=== PATIENT | male | born 1965 | race Caucasian/White ===

== ENCOUNTER 2022-08-26 10:49 | Emergency (ER) | payer OTHER, SELFPAY ==
[2022-08-26 10:51] VITALS: BP 113/72; PULSE 76; RESP 18; TEMP 36.6; O2SAT 97; BMI 21.8
--- NOTE | 2022-08-26 11:17 | EDS_ITS ---
HPI History of Present Illness Chief Complaint: General Illness Informant: patient Onset/Context/Timing Onset: Days (4) Context: Gradual Onset Timing: Continuous Quality: Sharp Location: Head Worsened by: Nothing Relieved by: Nothing Narrative Narrative: Patient presents with possible COVID-19 that has been getting progressively worse over the last 4 days. Patient states his parents recently tested positive for COVID-19. Patient states his symptoms started 3 days ago. Patient states that he took 18 mg of ivermectin that day. Patient states his symptoms have gradually gotten worse. Patient admits to a sore throat and rhinorrhea. Patient admits to a cough with some brown sputum. Patient admits to some nausea and vomiting. Patient admits to a fever of 101.7. Patient admits to some general myalgias. Patient also admits to a headache which he describes as sharp. Patient states nothing makes it better nothing makes it worse. [facility] Medical History (Updated 08/26/22 @ 12:[address] Janusz De Santiago DO) Diabetes Home Medications nirmatrelvir 300 mg (150 mg x2)-ritonavir 100 mg tablet,dose pack(EUA) (Paxlovid) See Rx Instructions PO .COMPLEX #30 tabs 08/26/22 [Rx Last Taken Unknown] Allergy/AdvReac Type Severity Reaction Status Date / Time No Known Allergies Allergy Verified 08/26/22 10:53 Surgical History Status post surgical removal of malignant neoplasm of skin Social History Smoking Status: Never smoker ROS ROS ED Constitutional Constitutional ED: Reports chills and fever(s) Eyes Eyes: Denies blurry vision or change in vision ENT ENT ED: Reports rhinorrhea and sore throat Cardiovascular Cardiovascular: Reports chest pain; Denies palpitations Respiratory/Chest Respiratory/Chest: Reports cough; Denies dyspnea Gastrointestinal Gastrointestinal: Reports nausea and vomiting Genitourinary Genitourinary ED: Denies dysuria or hematuria Musculoskeletal Musculoskeletal: Reports back pain and myalgias; Denies neck pain Integumentary Denies abscess or rash Neurologic Neurologic: Reports headache(s); Denies weakness Allergic/Immunologic Allergic/Immunologic ED: Denies mouth swelling or urticaria EXAM Physical Exam Const Vital Signs: 08/26/22 10:51 08/26/22 11:34 Temperature 98 F Temperature Source Temporal Pulse Rate 76 Respiratory Rate 18 Respiratory Effort Normal Non-Labored Blood Pressure 113/72 Blood Pressure Mean 85 Pulse Ox 97 Oxygen Delivery Method Room Air Positive well nourished and well developed General Appearance ED: well developed and NAD HEENT Reports moist mucous membranes Eyes PERRL and EOMs intact bilaterally Neck supple and no JVD Resp normal respiratory effort and clear to auscultation bilaterally Cardio regular rate, regular rhythm and no murmurs GI normal to inspection, nondistended, normoactive bowel sounds and non-tender Palpation: soft Extremity normal to inspection General Extremety ED: Negative for edema or tenderness General Extremity: Negative for edema Neuro oriented x3, CN's II-XII intact bilaterally and no sensory deficits noted Sensorium / Orientation: alert Motor Exam: strength 5/5 throughout Psych mental status grossly normal Skin no rashes or lesions noted MDM MDM MDM Narrative Medical decision making narrative: Patient was given IV fluids. COVID-19 rapid antigen was obtained and was positive. Influenza A and influenza B swabs were obtained and were negative. Portable 1 view chest x-ray was obtained. On my interpretation, lung harvey are clear. There is normal cardiac silhouette. Bony thorax is normal. There is no acute process noted. Radiologist also interpreted the x-ray and agrees. Patient was advised of his findings. Patient was given a prescription for Paxlovid. Patient was instructed to follow-up with his primary care physician in 5 to 7 days. Patient understood and was agreeable with the plan. All questions were answered. Radiography Chest X-Ray - ED: 1 View, Read by ED Physician, Read by Radiologist and No Acute Disease Diagnostic Testing: Clinical Impression(s) from Imaging Studies Chest X-Ray 08/26/22 11:35 IMPRESSION: Normal x-ray examination of the chest. Electronically Signed: Tod Jones MD at 12:00 EDT , Discharge Plan Triage Chief Complaint: General Illness ED Provider: Janusz De Santiago Dx/Rx/DC Orders Clinical Impression: COVID-19, Cough Instructions: Coronavirus Disease 2019 (COVID-19): Caring for Yourself or Others Prescriptions: New Paxlovid (EUA) 300 mg (150 mg x 2)-100 mg tablets,dose pack See Rx Instructions .ROUTE .COMPLEX Qty: 30 0RF Rx Instructions: take TWO 150 mg tablets of nirmatrelvir with ONE 100 mg tablet of ritonavir twice daily for 5 days Primary Care Provider: Care Physician,No Primary Referrals: Irene Patterson MD [Med Staff - Melter Operator] - 5-7 Days Care Physician,No Primary [Primary Care Provider] - Disposition Disposition: Home, Self Care
--- NOTE | 2022-08-26 11:35 | RAD_ITS ---
STUDY: X-RAY CHEST REASON FOR EXAM: Male, 56 years old. Cough TECHNIQUE: Single AP portable view of the chest. COMPARISON: Comparison is made with prior study 09/08/2015. FINDINGS: The lungs are clear and expanded. There is no demonstrated pleural abnormality. Normal size heart. Normal mediastinum and pasquale. Normal visualized pulmonary arteries. Normal visualized aortic arch and descending thoracic aorta. Normal visualized thoracic spine. Normal visualized ribs, clavicles, and shoulders. There is no demonstrated abnormality of the visualized soft tissue structures of the upper abdomen. RAD/Chest 1 View (Portable) IMPRESSION: Normal x-ray examination of the chest. Electronically Signed: Tod Jones MD at 12:00 EDT ,
== END 2022-08-26 13:03 | disposition home or self-care (01) ==
PROVIDERS: Emergency Provider Emergency Medicine; Visit Provider Emergency Medicine
DX: U07.1 COVID-19 (principal)
CPT/HCPCS: 71045; 87428; 99284; A4216

== ENCOUNTER 2023-07-30 16:28 | Emergency (ER) | payer OTHER, SELFPAY ==
[2023-07-30 16:30] VITALS: BP 138/90; PULSE 86; RESP 18; TEMP 36.4; O2SAT 97; BMI 23.5
--- NOTE | 2023-07-30 16:35 | NURSING ---
NO OLD EKGS
--- NOTE | 2023-07-30 16:44 | EDS_ITS ---
<Statement entered by Valentino Mcdermott MD - 07/31/23 15:06> I have personally performed a face to face assessment of the patient and have reviewed the GALE Note. Dr. Mcdermott: I have personally performed a face to face assessment of the patient and have reviewed the GALE Note. I performed a substantive portion of the visit including all aspects of the following. My montilla findings include: History is midsternal chest tightness and shortness of breath while chopping wood. Diagnosis of COPD. Exam is afebrile. Vital signs noted. Regular rate and rhythm. Lungs clear to auscultation bilaterally. Abdomen soft and nontender. Normal active bowel sounds. No respiratory distress. Medical Decision Making: In the differential is ACS versus COPD exacerbation versus dyspnea with exertion. Check EKG. Check chest x-ray. Checks labs. Check delta troponin. Discharge. I do not feel he requires observation at this time. Other additions or changes: [None] HPI History of Present Illness Chief Complaint: Chest Pain Narrative Narrative: 57-year-old male was chopping wood for about 45 minutes this morning around 9 AM and developed midsternal chest tightness, shortness of breath and fatigue to the point he had to lay down on the ground and rest. He started working again after resting for a little while but developed midsternal chest pain again within a few minutes. He initially went home but then was urged to come to the ER for evaluation. 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 He states he was recently diagnosed with emphysema/COPD at the [facility]. He has never been a smoker and they attributed it to environmental exposures in [place]. He uses an inhaler. He has had no recent increased shortness of breath or cough at home. [facility] Medical History (Updated 07/30/23 @ 20:39 by CHRIS Harrell) COPD (chronic obstructive pulmonary disease) Diabetes Home Medications nirmatrelvir 300 mg (150 mg x2)-ritonavir 100 mg tablet,dose pack (Paxlovid) See Rx Instructions PO .COMPLEX #30 tabs 08/26/22 [Rx Last Taken Unknown] Allergy/AdvReac Type Severity Reaction Status Date / Time No Known Allergies Allergy Verified 07/30/23 16:30 Surgical History Status post surgical removal of malignant neoplasm of skin Social History Smoking Status: Never smoker ROS ROS ED ROS Narrative Constitutional: Negative for fever, chills, malaise. CVS: Positive for chest pain. Negative for syncope. Respiratory: Negative for shortness of breath. GI: Negative for abdominal pain, nausea, vomiting. EXAM Physical Exam Narrative Exam Narrative: CONST: Patient sitting in no acute distress. EYES: Normal inspection. NECK: Normal inspection. RESP: No respiratory distress, CTAB. CVS: Regular rate and rhythm, no murmur, no gallop. ABD: Soft and nontender, no guarding or rebound, nondistended, no hepatosplenomegaly. SKIN: Color normal, no rash, warm, dry, intact. EXTREMITIES: Normal appearance, no pedal edema. NEURO: Oriented x4. PSYCH: Normal affect. Const Vital Signs: 07/30/23 16:30 07/30/23 17:18 07/30/23 18:22 Temperature 97.6 F L Temperature Source Temporal Pulse Rate 86 70 Respiratory Rate 18 14 Blood Pressure 138/90 H 145/93 H Blood Pressure Mean 106 110 Pulse Ox 97 95 Oxygen Delivery Method Room Air Room Air Room Air 07/30/23 19:00 07/30/23 20:00 Temperature Temperature Source Pulse Rate 69 69 Respiratory Rate 14 16 Blood Pressure 145/90 H 127/73 H Blood Pressure Mean 108 91 Pulse Ox 94 96 Oxygen Delivery Method Room Air Room Air MDM MDM MDM Narrative Medical decision making narrative: History gathered from: Patient and friend Patient had an episode of exertional chest pain and shortness of breath. He appears well and nontoxic. Vital signs within normal limits. He has a normal cardiopulmonary exam. Clinically no signs of fluid overload or DVT. EKG is sinus rhythm with no ischemic changes and serial cardiac enzymes are 5 and 6 ruling out ACS. D-dimer negative. CBC and BMP unremarkable. CXR shows no acute process. He is remained asymptomatic for the entirety of stay here and I feel he can be discharged home to [facility]. He was instructed that if symptoms return or worsen he should be immediately reevaluated and he was discharged in stable condition. Differential: ACS, PE, angina, COPD among other Lab Data Attestation: I reviewed the patient's lab results. Labs: Laboratory Results - last 24 hr 07/30/23 07/30/23 17:15 19:54 WBC 8.0 RBC 4.48 L Hgb 14.9 Hct 42.1 MCV 94.0 MCH 33.3 H MCHC 35.4 RDW Std Deviation 38.4 RDW Coeff of Declan 11.2 L Plt Count 261 MPV 8.9 Immature Gran % (Auto) 0.200 Neut % (Auto) 55.5 Lymph % (Auto) 29.3 Richardson % (Auto) 10.4 H Eos % (Auto) 4.0 Baso % (Auto) 0.6 Absolute Neuts (auto) 4.4 Absolute Lymphs (auto) 2.35 Nucleated RBC % 0 D-Dimer Quant (PE/DVT) < 0.27 L Sodium 139 Potassium 3.8 Chloride 106 Carbon Dioxide 29.0 Anion Gap 4 L BUN 20 H Creatinine 0.97 Estim Creat Clear Calc 98.87 Est GFR (MDRD) Af Amer 103 Est GFR (MDRD) Non-Af 85 BUN/Creatinine Ratio 20.7 H Glucose 89 Calcium 9.2 Troponin I High Sens 5 6 Radiography Diagnostic Testing: Clinical Impression(s) from Imaging Studies Chest X-Ray 07/30/23 17:20 IMPRESSION: No radiographic evidence of acute cardiopulmonary disease. Electronically Signed: Khai Jones MD at 17:37 EDT Reading Location ID and State: [facility] / [place] , Service support , ED attending interpretation of 2-view chest x-ray shows normal heart size, no acute infiltrate, edema, or effusion. EKG Initial EKG: Attestation: I personally reviewed and interpreted this EKG as follows: Interpretation: Sinus Rhythm and No Acute Injury Pattern Comments: ED attending interpretation is normal sinus rhythm at 80 bpm Normal intervals, no ectopy No STEMI criteria Discharge Plan Triage Chief Complaint: Chest Pain ED Midlevel Provider: Marisol Nunez ED Provider: Valentino Mcdermott Dx/Rx/DC Orders Clinical Impression: Chest pain Instructions: Chest Pain [facility] Prescriptions: No Action Paxlovid 300 mg (150 mg x 2)-100 mg tablets,dose pack See Rx Instructions .ROUTE .COMPLEX Qty: 30 0RF Rx Instructions: take TWO 150 mg tablets of nirmatrelvir with ONE 100 mg tablet of ritonavir twice daily for 5 days Primary Care Provider: Care Physician,No Primary Referrals: Care Physician,No Primary [Primary Care Provider] - Activity Restrictions/Additional Instructions: Today your blood work and imaging were normal with no signs of heart attack or blood clot. However I cannot rule out underlying heart disease and recommend you see your PCP this week for further evaluation. If you have new or worsening symptoms come back to the ER. Disposition Disposition: Home, Self Care
--- NOTE | 2023-07-30 16:44 | EKG12_ITS ---
Test Reason : CP Blood Pressure : / mmHG Vent. Rate : 080 BPM Atrial Rate : 080 BPM P-R Int : 186 ms QRS Dur : 108 ms QT Int : 362 ms P-R-T Axes : 040 029 043 degrees QTc Int : 417 ms Normal sinus rhythm Normal ECG No previous ECGs available Confirmed by CELIA AMADOR, SUZIE ([id number]), fashion editor AMBROSE NARANJO ([id number]) on 09/13/2023 1:59:53 PM Referred By: RON/CRESENCIO Confirmed By:SUZIE YANG MD
[2023-07-30] MEDS: Aspirin 81 MG TAB.CHEW 324 MG PO (16:58)
--- NOTE | 2023-07-30 17:20 | RAD_ITS ---
EXAM: XR CHEST, 1 VIEW CLINICAL INDICATION: chest pain TECHNIQUE: Frontal view of the chest. COMPARISON: 9.30.22 FINDINGS: LUNGS AND PLEURAL SPACES: Unremarkable. No consolidation or edema. No pneumothorax. No effusion. HEART: Unremarkable. Cardiac silhouette not enlarged. MEDIASTINUM: Central airways and mediastinal contour are unremarkable. BONES/JOINTS: Unremarkable. SOFT TISSUES: Unremarkable. RAD/Chest 1 View (Portable) IMPRESSION: No radiographic evidence of acute cardiopulmonary disease. Electronically Signed: Khai Jones MD at 17:37 EDT ,
[2023-07-30 17:25] LABS: Absolute Lymphocyte Count 2.35 X10^3/uL (0.83-4.51); Absolute Neutrophil Count 4.4 X10^3/uL (2.0-7.7); Basophil# 0.05 X10^3/uL; Basophil% 0.6 % (0-1); Eosinophil# 0.32 X10^3/uL; Hematocrit 42.1 % (40-54); Hemoglobin 14.9 g/dL (13.0-16.5); Lymphocyte # 2.35 X10^3/ul (0.83-4.51); Lymphocyte % 29.3 % (19-41); Mean Corp Hgb Conc 35.4 g/dL (32-36); Mean Corpuscular Hgb 33.3 pg (27.0-32.0); Mean Platelet Vol. 8.9 fl (6.2-12.0); Monocyte# 0.83 X10^3/uL; Monocyte% 10.4 % (0-10); NRBC Flagged by Analyzer 0 % (0-5); Neutrophil # 4.44 X10^3/uL (2.7-7.7); Neutrophil % 55.5 % (47-70); Platelet Count 261 K/mm3 (150-450); RBC Distribution Width CV 11.2 % (11.6-14.6); RBC Distribution Width SD 38.4 fl (35.1-43.9); Red Blood Count 4.48 M/mm3 (4.6-6.2)
[2023-07-30 17:40] LABS: D-Dimer Quantitative (DVT/PE) < 0.27 FEU/ug/m (0.27-0.49)
[2023-07-30 17:47] LABS: Anion Gap 4 (5-15); BUN 20 mg/dL (7-18); BUN/Creat Ratio 20.7 RATIO (10-20); Calcium,Total 9.2 mg/dL (8.5-10.1); Chloride 106 mmol/L (98-107); Creatinine, Serum 0.97 mg/dL (0.70-1.30); EST Glomerular Filtration Rate 85 mL/min (>60); Est Glom Filt Rate - Afr Amer 103 mL/min (>60); Estimated Creatinine Clearance 98.87 ml/min; Glucose 89 mg/dL (74-106); Potassium 3.8 mmol/L (3.5-5.1); Sodium Level 139 mmol/L (136-145); Troponin-I HS (w/2H Reflex) 5 pg/mL (3.0-78.0)
[2023-07-30 18:22] VITALS: BP 145/93; PULSE 70; RESP 14; O2SAT 95
[2023-07-30 19:00] VITALS: BP 145/90; PULSE 69; RESP 14; O2SAT 94
[2023-07-30 19:23] LABS: Reflex Troponin-HS? (from REC) Y
[2023-07-30 20:00] VITALS: BP 127/73; PULSE 69; RESP 16; O2SAT 96
[2023-07-30 20:33] LABS: Troponin-I HS 6 pg/mL (3.0-78.0)
[2023-07-30 20:56] VITALS: BP 126/81; PULSE 74; RESP 16; O2SAT 98
== END 2023-07-30 20:56 | disposition home or self-care (01) ==
PROVIDERS: Physician Assistant; Emergency Provider Emergency Medicine; Visit Provider Emergency Medicine
DX: R07.9 Chest pain, unspecified (principal)
CPT/HCPCS: 71045; 80048; 84484; 85025; 85379; 93005; 99285; A4216

== ENCOUNTER 2024-01-08 17:10 | Emergency (ER) | payer OTHER, SELFPAY ==
[2024-01-08] VITALS (8 sets, daily range): BP systolic 124–153; BP diastolic 76–98; PULSE 65–78; RESP 15–22; TEMP 36.1; O2SAT 97–100; BMI 24.2
--- NOTE | 2024-01-08 17:38 | EKG12_ITS ---
Test Reason : SOB Blood Pressure : / mmHG Vent. Rate : 068 BPM Atrial Rate : 068 BPM P-R Int : 190 ms QRS Dur : 102 ms QT Int : 390 ms P-R-T Axes : 036 038 054 degrees QTc Int : 414 ms Normal sinus rhythm Normal ECG Confirmed by Liam Saba ([id number]), news assignment editor TIANA IGLESIAS ([id number]) on 01/09/2024 9:29:13 AM Referred By: Confirmed By:Liam Saba
[2024-01-08] MEDS: Ipratropium/Albuterol Sulfate 3 ML AMPUL.NEB INHALATION (17:46)
[2024-01-08] MEDS: Albuterol 2.5 MG/3 ML VIAL.NEB. INHALATION (18:08)
[2024-01-08 18:15] LABS: Absolute Lymphocyte Count 3.09 X10^3/uL (0.83-4.51); Absolute Neutrophil Count 3.5 X10^3/uL (2.0-7.7); Basophil# 0.07 X10^3/uL; Basophil% 0.9 % (0-1); Eosinophil# 0.43 X10^3/uL; Eosinophils% 5.5 % (0-5); Hematocrit 43.7 % (40-54); Hemoglobin 15.3 g/dL (13.0-16.5); Lymphocyte # 3.09 X10^3/ul (0.83-4.51); Lymphocyte % 39.3 % (19-41); Mean Corpuscular Hgb 31.7 pg (27.0-32.0); Mean Corpuscular Volume 90.7 fL (80-94); Mean Platelet Vol. 9.1 fl (6.2-12.0); Monocyte# 0.75 X10^3/uL; Monocyte% 9.5 % (0-10); NRBC Flagged by Analyzer 0 % (0-5); Neutrophil # 3.51 X10^3/uL (2.7-7.7); Neutrophil % 44.7 % (47-70); Platelet Count 321 K/mm3 (150-450); RBC Distribution Width CV 11.4 % (11.6-14.6); RBC Distribution Width SD 38.1 fl (35.1-43.9); Red Blood Count 4.82 M/mm3 (4.6-6.2); White Blood Count 7.9 K/mm3 (4.4-11.0)
--- NOTE | 2024-01-08 18:24 | ED.VIS.DYS ---
HPI History of Present Illness Chief Complaint: Shortness of Breath Informant: patient Narrative Narrative: Patient presents with dyspnea and wheezing. He states he is diagnosed with COPD. It sounds like he is on inhaled steroid like Atrovent but he has no rescue inhaler. He states since Monday has been having more episodes where his breathing gets really tight. He is not really pain but tight. No fevers or chills. No nausea vomiting or muscle aches. He states it is just hard sometimes to get a full deep breath. He also thinks anxiety is playing a part in this as he gets very anxious. No history of heart disease. He had a stress test it up in the [facility] in [place] in October that was totally normal. [facility] Medical History COPD (chronic obstructive pulmonary disease) Diabetes Emphysema lung Home Medications nirmatrelvir 300 mg (150 mg x2)-ritonavir 100 mg tablet,dose pack (Paxlovid) See Rx Instructions PO .COMPLEX #30 tabs 08/26/22 [Rx Last Taken Unknown] prednisone 20 mg tablet 60 mg (3 x 20 mg) PO DAILY #15 TABLETS 01/08/24 [Rx Last Taken Unknown] Allergy/AdvReac Type Severity Reaction Status Date / Time No Known Allergies Allergy Verified 07/30/23 16:30 Surgical History Status post surgical removal of malignant neoplasm of skin Social History Smoking Status: Never smoker ROS ROS ED ROS Narrative A complete review of systems was performed and is negative except as documented in the history of present illness. Some specific details below. Constitutional: No recent fevers or chills. No malaise EYE: No discharge ENT: No difficulty swallowing. No swelling. No pain. No reflux symptoms. No GERD. No change in voice. CV: He has a tight sense but no pain. No palpitations. Respiratory: See history of present illness. No hemoptysis. No sputum. GI: No abdominal pain. No nausea vomiting diarrhea. No blood in stool. : No frequency dysuria or hematuria. Musculoskeletal: No recent trauma. No pains. No swelling. No travel surgery immobilization personal or family history of DVT or PE. Skin: No rash. Nondiaphoretic. Neuro: No weakness or numbness. Endocrine: No polyuria or polydipsia. EXAM Physical Exam Narrative Exam Narrative: CONSTITUTIONAL: Patient is nontoxic in appearance. The patient looks comfortable. Work of breathing looks increased. HEENT: No notable trauma. Mucous membranes moist. No sinus tenderness. No indication of pain with swallowing. No swelling or mass EYES: No conjunctival injection. No pallor. NECK:No JVD. No stridor. CARDIOVASCULAR: Regular rate. Regular rhythm. No notable murmur. No JVD. RESPIRATORY: Patient has increased work of breathing. But mostly he takes a big breath in. When he gets a big breath he looks relaxed and he even states it is a very calming influence. He is moving air but slightly decreased. He has some expiratory wheeze. More with the forced expiration. GASTROINTESTINAL: Not distended. Bowel sounds are normal. No tenderness. GENITOURINARY: No tenderness over the bladder. No CVA tenderness. MUSCULOSKELETAL: Atraumatic. No peripheral edema. No cord. No tenderness along the deep venous system. No asymmetry. No distended veins. NEUROLOGICAL: Patient is alert and appropriate. No focal deficit noted. SKIN: No noted rashes. No diaphoresis. PSYCHIATRIC: Patient is a bit anxious. Const Vital Signs: 01/08/24 17:11 01/08/24 17:20 01/08/24 17:46 Temperature 97.0 F L Temperature Source Temporal Pulse Rate 77 77 Respiratory Rate 22 H 20 H Respiratory Effort Normal Non-Labored Respiratory Depth Normal Respiratory Pattern Normal Normal Blood Pressure 153/98 H Blood Pressure Mean 116 Pulse Ox 100 Oxygen Delivery Method Room Air 01/08/24 17:46 01/08/24 18:06 01/08/24 18:09 Temperature Temperature Source Pulse Rate 65 Respiratory Rate 18 Respiratory Effort Respiratory Depth Respiratory Pattern Normal Blood Pressure Blood Pressure Mean Pulse Ox 99 99 Oxygen Delivery Method Room Air Room Air 01/08/24 18:25 01/08/24 19:09 Temperature Temperature Source Pulse Rate 67 68 Respiratory Rate 15 15 Respiratory Effort Respiratory Depth Respiratory Pattern Blood Pressure 127/88 H 124/77 H Blood Pressure Mean 101 92 Pulse Ox 99 97 Oxygen Delivery Method Room Air Room Air MDM MDM MDM Narrative Medical decision making narrative: Patient is given some breathing treatments here. He is also very anxious. Nurse talked to him and he would like something for anxiety which I think is reasonable. We will get him a dose of Ativan. We are awaiting further evaluation and results. My independent interpretation of his single view AP chest x-ray shows no acute process. Final reading is pending. Patient's CBC is normal. Patient's electrolytes show no marked abnormalities. Patient's troponin is negative at 7 despite several days of symptoms. I do not think this requires a repeat or delta troponin. Final reading of his x-ray shows no acute process. I rechecked the patient. He is calm relaxed doing markedly better. We will get him on a short course of steroids. I will write for albuterol here so he can be shown how to use it. We discussed the timing and expectation. We explained that steroids take about a day to start working. He will follow-up with the [facility]. Lab Data Attestation: I reviewed the patient's lab results. Labs: Laboratory Results - last 24 hr 01/08/24 17:50 WBC 7.9 RBC 4.82 Hgb 15.3 Hct 43.7 MCV 90.7 MCH 31.7 MCHC 35.0 RDW Std Deviation 38.1 RDW Coeff of Declan 11.4 L Plt Count 321 MPV 9.1 Immature Gran % (Auto) 0.100 Neut % (Auto) 44.7 L Lymph % (Auto) 39.3 [place] % (Auto) 9.5 Eos % (Auto) 5.5 H Baso % (Auto) 0.9 Absolute Neuts (auto) 3.5 Absolute Lymphs (auto) 3.09 Nucleated RBC % 0 Sodium 143 Potassium 3.6 Chloride 110 H Carbon Dioxide 25.0 Anion Gap 8 BUN 13 Creatinine 0.98 Estim Creat Clear Calc 96.69 Est GFR (MDRD) Af Amer 102 Est GFR (MDRD) Non-Af 84 BUN/Creatinine Ratio 13.3 Glucose 104 Calcium 10.8 H Troponin I High Sens 7 Radiography Diagnostic Testing: Clinical Impression(s) from Imaging Studies Chest X-Ray 01/08/24 18:43 IMPRESSION: No acute cardiopulmonary disease. Electronically Signed: Emily Plummer MD at 19:32 EST , EKG Initial EKG: Comments: My independent interpretation of the patient's EKG shows a normal sinus rhythm with a rate of 68. No ectopy. No acute ST elevation or depression. OK interval, QRS duration and QTc are all normal. This EKG was done while he was having his symptoms of dyspnea and tightness. Discharge Plan Triage Chief Complaint: Shortness of Breath ED Provider: Clemente Brown Dx/Rx/DC Orders Clinical Impression: COPD with acute exacerbation Instructions: ED COPD Flare Prescriptions: New prednisone 20 mg tablet 60 mg PO DAILY Qty: 15 0RF No Action Paxlovid 300 mg (150 mg x 2)-100 mg tablets,dose pack See Rx Instructions .ROUTE .COMPLEX Qty: 30 0RF Rx Instructions: take TWO 150 mg tablets of nirmatrelvir with ONE 100 mg tablet of ritonavir twice daily for 5 days Primary Care Provider: [facility] Referrals: [facility] [Primary Care Provider] - 3-5 Days Disposition Disposition: Home, Self Care
[2024-01-08 18:33] LABS: Anion Gap 8 (5-15); BUN 13 mg/dL (7-18); BUN/Creat Ratio 13.3 RATIO (10-20); Calcium,Total 10.8 mg/dL (8.5-10.1); Chloride 110 mmol/L (98-107); Creatinine, Serum 0.98 mg/dL (0.70-1.30); EST Glomerular Filtration Rate 84 mL/min (>60); Est Glom Filt Rate - Afr Amer 102 mL/min (>60); Estimated Creatinine Clearance 96.69 ml/min; Glucose 104 mg/dL (74-106); Potassium 3.6 mmol/L (3.5-5.1); Sodium Level 143 mmol/L (136-145); Troponin-I HS 7 pg/mL (3.0-78.0)
[2024-01-08] MEDS: LORazepam 1 MG Tablet PO (18:34)
--- NOTE | 2024-01-08 18:43 | RAD_ITS ---
STUDY: X-RAY CHEST REASON FOR EXAM: Male, 58 years old. SOB TECHNIQUE: Single AP portable view of the chest. COMPARISON: 3. FINDINGS: The lungs are clear and expanded. There is no demonstrated pleural abnormality. Normal size heart. Normal mediastinum and pasquale. Normal visualized pulmonary arteries. Normal visualized aortic arch and descending thoracic aorta. There are mild degenerative changes of the visualized thoracic spine. Normal visualized ribs, clavicles, and shoulders. There is no demonstrated abnormality of the visualized soft tissue structures of the upper abdomen. RAD/Chest 1 View (Portable) IMPRESSION: No acute cardiopulmonary disease. Electronically Signed: Emily Plummer MD at 19:32 EST ,
[2024-01-08] MEDS: Albuterol Sulfate 8 gm Inhaler (60 puffs) 2 PUFF INHALATION (19:51)
== END 2024-01-08 20:02 | disposition home or self-care (01) ==
PROVIDERS: Emergency Provider Emergency Medicine; Visit Provider Emergency Medicine
DX: J44.1 Chronic obstructive pulmonary disease with (acute) exacerbation (principal)
CPT/HCPCS: 71045; 80048; 84484; 85025; 93005; 94640; 99285; A4216

== ENCOUNTER → 2024-10-01 | Outpatient (CLI) | payer OTHER, SELFPAY ==
--- NOTE | 2024-10-01 10:25 | RAD_ITS ---
STUDY: X-RAY CHEST REASON FOR EXAM: Male, 58 years old. EMPHYSEMA TECHNIQUE: PA and lateral views of the chest. COMPARISON: 01/08/2024 FINDINGS: The lungs are clear and expanded. There is no demonstrated pleural abnormality. Normal size heart. Normal mediastinum and pasquale. Normal visualized pulmonary arteries. Normal visualized aortic arch and descending thoracic aorta. Normal visualized thoracic spine. Normal visualized ribs, clavicles, and shoulders. There is no demonstrated abnormality of the visualized soft tissue structures of the upper abdomen. RAD/Chest PA and Lateral IMPRESSION: Normal x-ray examination of the chest. Electronically Signed: Michael Norton MD at 9:22 EST ,
--- OUTSIDE RECORDS SUMMARY | 2024-10-01 11:45 | XMS RPT_ITS | CCD ---
Author Organization [facility] Care Team Providers Care Car Customizer Name Role Phone Pcp, No Primary Care Provider Unavailabl e Unavailable Primary Care Provider Unavailabl e CHEUNG, AUDRA Attending Unavailable Medications Completed/Discontinued Medications Medication Drug Class(es) Dates Sig (Normalized) Sig (Original) acetaminophen 325 mg / dichloralphenazone 100 mg / isometheptene 65 mg oral capsule (1 source) Start: 02-14-2006 End: 12-27-2022 take 2 capsules by mouth twice daily as needed ACETAMINOPHEN-ISO METHEPTENE-DICHLO RALPHENAZONE 325 MG-65 MG-100 MG ORAL CAP 2 caps at start of knox, then1 cap bid prn 30 5 02/14/2006 12/27/2022 Discontinued Comment on above: 2 caps at start of h a, then1 cap bid prn azithromycin 250 mg oral tablet (1 source) Macrolide Antimicrobial Start: 02-14-2006 End: 12-27-2022 ZITHROMAX Z-AJNELL 250 MG TAB As directed 1 janell 0 02/14/2006 12/27/2022 Discontinued Comment on above: As directed ergocalciferol, vitamin D2, (VITAMIN D2 ORAL) (2 sources) ergocalciferol, vitamin D2, (VITAMIN D2 ORAL) Take by mouth. Once a month 0 Active Comment on above: Take by mouth. Once a month guaiFENesin / Pseudoephedrine (1 source) alpha-Adrenergic Agonist Start: 02-14-2006 End: 12-27-2022 ENTEX PSE 120 MG-400 MG 12 HR CAP Take one(1) tablet two(2) times daily. 20 0 02/14/2006 12/27/2022 Discontinued Comment on above: Take one(1) tablet t wo(2) times daily. Problems Problem Classification Problem Date Documented Da te Episodic/Chronic Other gastrointestinal disorders (2 sources) Full rectum; Translations: [Other specified symptoms and signs involving the digestive system and abdomen] Episodic Other screening for suspected conditions (not mental disorders or infectious disease) (2 sources) Patient encounter status; Translations: [Encounter for screening for malignant neoplasm of colon] Episodic Results Test Name Value Interpretation Reference Range Facil ity COLONOSCOPY DIAGNOSTICon [facility] Vital Signs Date Time Vital Sign Value Performing Clinician Faci lity 01-20-2023 13:03-0500 Diastolic blood pressure 72 mm[Hg] Nasreen Clement MD Work Phone: [facility] 01-20-2023 13:03-0500 Heart rate 65 /min Nasreen Clement MD Work Phone: [facility] 01-20-2023 13:03-0500 Respiratory rate 16 /min Nasreen Clement MD Work Phone: [facility] 01-20-2023 13:03-0500 SaO2% (BldA) [Mass fraction] 97 % Nasreen Clement MD Work Phone: [facility] 01-20-2023 13:03-0500 Systolic blood pressure 129 mm[Hg] Nasreen Clement MD Work Phone: [facility] 01-20-2023 11:47-0500 Body temperature 97.3 [degF] Nasreen Clement MD Work Phone: [facility] 12-27-2022 13:43-0500 Body height 188 cm Becky Kannapolis PA-C Work Phone: [facility] 12-27-2022 13:43-0500 Body temperature 96.69 [degF] Becky Freddie PA-C Work Phone: [facility] 12-27-2022 13:43-0500 Body weight 84.37 kg Becky Freddie PA-C Work Phone: [facility] 12-27-2022 13:43-0500 Diastolic blood pressure 80 mm[Hg] Becky Kannapolis PA-C Work Phone: [facility] 12-27-2022 13:43-0500 Heart rate 85 /min Becky Freddie PA-C Work Phone: [facility] 12-27-2022 13:43-0500 SaO2% (BldA) [Mass fraction] 97 % Becky Frazier PA-C Work Phone: [facility] 12-27-2022 13:43-0500 Systolic blood pressure 118 mm[Hg] Becky Frazier PA-C Work Phone: [facility] Encounters Encounter Date Encounter Type Care Provider Facility Start: 05-14-2024 ambulatory AUDRA CHEUNG Facility:[facility] Start: 01-20-2023 End: 01-20-2023 Subsequent hospital visit by physician Nasreen Clement MD Work Phone: Ambulatory Surgery Comment on above: Rectal fullness [R19 .8] Start: 12-27-2022 End: 12-27-2022 Patient encounter procedure Becky Frazier PA-C Work Phone: General Surgery Comment on above: Rectal fullness (Sydnee shira Dx); Encounter for screening for malignant neoplasm of colon Procedures Date Procedure Procedure Detail Performing Clinician Start: 01-20-2023 Colonoscopy flx dx w /collj spec when pfrmd Becky Frazier PA-C Work Phone: Start: 01-20-2023 Colonoscopy Nasreen Clement MD Work Phone: Plan of Treatment Date Care Activity Detail Author Start: 01-20-2033 Colonoscopy Colonoscopy [facility] Start: 01-20-2033 Colorectal Cancer Screening Colorectal Cancer Screening [facility] Start: 07-28-2023 Influenza vaccination Influenza Vacc ine (#1) [facility] Start: 11-27-2022 DEPRESSION ASSESSMENT DEPRESSION ASS ESSMENT [facility] Start: 2021 PROSTATE CANCER SCRE ENING DISCUSSION PROSTATE CANCER SCREENING DISCUSSION [facility] Start: 2016 SHINGRIX VACCINE (1 of 2) SHINGRIX V ACCINE (1 of 2) [facility] Start: 2011 COLOGUARD (FIT-DNA) COLOGUARD (FIT-D NA) [facility] Start: 2011 Colonoscopy COLONOSCOPY [facility] Start: 2011 COLORECTAL CANCER SCREENING COLORECTAL CANCER SCREENING [facility] Start: [address] COLONOGRAPHY [facility] Start: 2011 [facility] Start: 2011 Diabetes Screening Diabetes Screenin g [facility] Start: 2011 FECAL OCCULT BLOOD FECAL OCCULT BLOO D [facility] Start: 2011 SIGMOIDOSCOPY SIGMOIDOSCOPY [facility] Start: 2001 Lipid 1996 panel - S kamryn or Plasma Lipid Screening [facility] Start: 2001 LIPID SCREEN LIPID SCREEN [facility] Start: 1985 Urine microalbumin profile [facility] Start: 1984 HEPATITIS C SCREENING HEPATITIS C SC REENING [facility] Start: 1984 HIV SCREENING HIV SCREENING [facility] Start: 04-25-1967 COVID-19 VACCINE (#1) COVID-19 VACCI NE (#1) [facility] Start: 1966 HEPATITIS B (1 of 3 - 3-dose series) HEPATITIS B (1 of 3 - 3-dose series) [facility] Start: 1966 Hepatitis B Vaccine (1 of 3 - 3-dose series) Hepatitis B Vaccine (1 of 3 - 3-dose series) [facility] Immunizations Immunization Date Immunization Notes Care Provider Fa cility 09-22-2022 influenza virus vacc ine, unspecified formulation Nasreen Clement MD Work Phone: [facility] Payers Date Payer Category Payer Private Health Insurance [id number] 2007 Unknown [id number] Social History Date Type Detail Facility Start: 12-27-2022 Tobacco smoking stat us NHIS Never smoked tobacco [facility] Start: 12-27-2022 Tobacco use and exposure Smoke less tobacco non-user [facility] Start: 12-27-2022 End: 03-20-2023 Alcohol intake Lifetime non-drinker (finding) [facility] Start: 1965 Sex Assigned At Not on file C [facility] Start: 12-27-2022 End: 01-20-2023 History of Social function [facility] Start: 12-27-2022 End: 01-20-2023 Tobacco use panel [facility] National Score (1-10 0), lower number is lower risk 57 [facility] Nurse Note 01-20-2023 Franny Pinzon RN - 01/20/2023 1:15 PM Franny Veronica RN - 01/20/2023 12:40 PM EST Note Date & Type Note Facility 01-20-2023 Nurse Note Patient states he is not having pain at this time. Patient feels like it is hunger pains and feels comfortable to go home at this time. Patient encouraged to call Dr. Clement's office if feeling gets to be painful, worsens or does not subside. Patient verbalized understanding. Patient arrived laying on left side. Patient states he is having hunger pains in his abdomen and rates pain 4/10. Patient states they come and go. Patient's abdomen appears to be nondistended and soft to palpation. documented in this encounter [facility] History and physical note 01-20-2023 Nasreen Clement MD - 01/20/2023 12:45 PM ESTNasreen Clement MD - 01/20/2023 12:45 PM EST Note Date & Type Note Facility 01-20-2023 History and physi mindy note UPDATED PROCEDURAL SEDATION HISTORY AND PHYSICAL EXAMINATION SERVICE DATE: 01/20/2023 SERVICE TIME: PHYSICAL EXAM MUST BE COMPLETED ON ADMISSION PROCEDURE: colonoscopy, possible biposies Procedure Indications: screening for colon cancer The History and Physical (completed in the past 30 days) has been reviewed and the patient has been examined. The contents accurately reflect the patient's condition with the following additions or revisions since the H&P was completed. ASA Class: ASA Class:: Patient with mild systemic disease Examination indicates no changes. AIRWAY: Airway Visualization of Uvula: Yes Mouth opening greater than 2 fingerbreadths: Yes Neck Full Range of Motion: Yes LUNGS: Lungs clear to auscultation CARDIAC: Regular rhythm,Regular rate Provisional Diagnosis/Treatment Plan: colonoscopy, possible biopsies SEDATION GOAL: Moderate This H&P can be found in the Electronic Medical Record. SIGNATURE: Nasreen Clement MD PATIENT NAME: Jessika Chapa DATE: January 20, 2023 TIME: 11:52 AM Source Note - Nasreen Clement MD - 01/20/2023 12:45 PM EST HISTORY AND PHYSICAL Jessika Chapa 1965 REFERRING PHYSICIAN: Lesli Fan CNP CHIEF COMPLAINT: Consult (Colonoscopy) HPI: The patient is a 57 year old male referred for endoscopy. Jessika notes no colon complaints. Patient denies any change in bowel habits, weight changes, blood in stools, black tarry stools or abdominal pain. He does note a sensation of rectal fullness x years which is worse after cycling. Occasionally notes sensation of some tissue prolapsing. Denies any bleeding or pain. States had examined by a PCP at one point and was told nothing worrisome on exam. Denies family history of colon cancer in a first-degree relative. Does note a cousin who had colon resection and colostomy performed, but unsure of diagnosis. The patient notes no upper GI complaints. Jessika has not undergone prior endoscopy. Denies chest pain, shortness of breath or recent hospitalizations. Denies problems with sedation in the past/ PAST MEDICAL HISTORY PAST MEDICAL HISTORY Diagnosis Date Diabetes mellitus (HCC) Hyperlipemia Pneumonia, viral PAST SURGICAL HISTORY PAST SURGICAL HISTORY Procedure Laterality Date PAST SURGICAL HISTORY OF mole removal on face TONSILLECTOMY & ADENOIDECTOMY <AGE 13 CURRENT MEDICATIONS Current Outpatient Medications Medication Sig ergocalciferol, vitamin D2, (VITAMIN D2 ORAL) Take by mouth. Once a month No current facility-administered medications for this visit. ALLERGIES: Patient has no known allergies. PERSONAL HISTORY: SOCIAL HISTORY Social History Tobacco Use Smoking status: Never Smokeless tobacco: Never Vaping Use Vaping Use: Never used Substance Use Topics Alcohol use: Never Drug use: Never FAMILY HISTORY: FAMILY HISTORY FAMILY HISTORY Problem Relation Age of Onset Heart Attack Mother Osteoporosis Mother Dementia Father other (myocarditis) Father other (a fib) Father Heart Attack Father other (atrial fib) Father Diabetes Father Kidney Disease Sister Thyroid Sister REVIEW OF SYMPTOMS: The review of systems data was entered by the nurse and reviewed by sc Nursing Notes: Shira Lima LPN 12/27/2022 1:48 PM Signed REVIEW OF SYSTEMS: General: The patient denies fatigue, denies weight loss, notes weight gain, denies feeling hot, and denies feelings of cold. Eyes: The patient denies glaucoma, denies eye injury/surgery, wears glasses or contacts. Ear/Nose/Throat: The patient denies allergies, denies hayfever, denies ear infections, and denies bloody noses. Cardiovascular: The patient notes chest pain, denies heart disease, denies high blood pressure,denies cardiac stent, denies prior heart attack, denies irregular heart beat, denies high cholesterol, denies poor circulation, denies heart failure, other cardiac issues, denies claudication, notes cold feet, denies peripheral arterial stent. Respiratory: The patient denies tuberculosis, notes pneumonia, denies frequent cough, denies pulmonary embolism, denies shortness of breath, and denies coughing up blood. Gastrointestinal: The patient denies difficulty swallowing, denies acid reflux, denies ulcers, denies vomiting, denies jaundice/hepatitis, denies gallbladder problems, denies black or tarry stools, notes hemorrhoids, denies bleeding from rectum, denies diverticulitis, denies constipation, denies diarrhea, denies loss of stool control, and denies hernias. Kidney/Bladder: The patient denies kidney stones, denies urine infections, and denies bloody urine. Skin: The patient notes a history of skin cancer, denies bleeding/changing moles, and denies a history of skin rash. Neurologic: The patient denies a history of epilepsy/convulsions, notes headaches, denies head/spinal injuries, and denies stroke/TIA. Psychiatric: The patient denies psychiatric medications, denies depression, and denies voices, denies substance abuse. Endocrine: The patient denies thyroid disorders, notes diabetes, and denies hormonal problems. Hematologic: The patient denies a history of bruising, denies bleeding, and denies anemia, denies blood clots. Infections: The patient denies a history of measles and mumps, denies rheumatic fever, and denies sexually transmitted diseases. Musculoskeletal: The patient notes back pain/injury, denies back problems, denies sciatica, notes knee/foot trouble, denies arthritis, or denies gout. When was patient's last Mammogram screening? N/A Last Colonoscopy: none Shira Lima LPN I have confirmed and edited as necessary, the PFSH and ROS obtained by others. Becky Frazier PA-C PHYSICAL EXAMINATION: General: The patient is 57 year old male, well nourished, well hydrated in no acute distress. The patient is oriented to time, place, and person. VITALS: Blood pressure 118/80, pulse 85, temperature (!) 35.9 C (96.7 F), height 188 cm (6' 2 ), weight 84.4 kg (186 lb), SpO2 97 %. Body mass index is 23.88 kg/m . HEENT: Normal cephalic, ataumatic, pupils are equally round, sclera are anicteric, mucous membranes are moist, oropharynx is clear. Neck has no masses, asymmetry or lymphadenopathy. Respiratory: Clear to auscultation and percussion. Normal respiratory excursion and pattern. Cardiac: Examination is regular rate and rhythm. Normal S1/S2 Abdominal exam: Soft, nontender, with no palpable masses. No hepatosplenomegaly. No palpable hernias. Extremities: no clubbing, cyanosis or edema. No adenopathy. LABORATORY VALUES: As Noted RADIOLOGIC STUDIES: As Noted Assessment IMPRESSION: encounter for colonoscopy. Sensation of rectal fullness after exercise-suspect likely hemorrhoidal disease PLAN: I have reviewed my findings with the surgeon. Will plan for lower endoscopy. We discussed the risks and benefits of the planned endoscopy. I have informed the patient that complications can occur including failure to complete the endoscopy and perforation. The patient had the opportunity to ask questions concerning the planned endoscopy. My staff has also explained the procedure to the patient in understandable terms and has given the patient printed material concerning the procedure. The patient freely consents to surgery. The patient was offered a surgery/procedure at a [facility] facility. I have counseled the patient regarding the risk of exposure to and/or potential harm posed by the COVID-19 virus with having a surgery/procedure at this time versus the risk of delaying the surgery/procedure. It is not possible to know either the risk of delaying the surgery or procedure or chance of getting an infection with perfect accuracy, but a joint decision was made between the patient and myself to proceed at this time with endoscopy. Patient notes [facility] I have explained to the patient the difference between IV conscious sedation and MAC anesthesia - and I have offered either, according to the patient's wishes. I have explained that with IV conscious sedation there is no anesthesia provider available and therefore there is a limitation of the amount of IV medications that can be given and that the patient may wake up in the middle of the procedure and/or experience pain/discomfort during the procedure. Further discussion was done and the patient was given the opportunity to ask questions and all questions were answered. The patient chooses IV conscious sedation. Requesting Dr. Clement for procedure If noted to have internal hemorrhoids on colonoscopy, consider follow-up with surgeon for possible hemorrhoidal banding Diagnoses: (R19.8) Rectal fullness (primary encounter diagnosis) (Z12.11) Encounter for screening for malignant neoplasm of colon Consultation requested by Dr. Lesli Fan for an opinion regarding rectal fullness and need for colonoscopy. My final recommendations will be communicated back to the requesting physician by way of shared Medical record or letter to requesting physician via US mail. Becky Frazier PA-C HISTORY AND PHYSICAL Jessika Chapa 1965 REFERRING PHYSICIAN: Lesli Fan CNP CHIEF COMPLAINT: Consult (Colonoscopy) HPI: The patient is a 57 year old male referred for endoscopy. Jessika notes no colon complaints. Patient denies any change in bowel habits, weight changes, blood in stools, black tarry stools or abdominal pain. He does note a sensation of rectal fullness x years which is worse after cycling. Occasionally notes sensation of some tissue prolapsing. Denies any bleeding or pain. States had examined by a PCP at one point and was told nothing worrisome on exam. Denies family history of colon cancer in a first-degree relative. Does note a cousin who had colon resection and colostomy performed, but unsure of diagnosis. The patient notes no upper GI complaints. Jessika has not undergone prior endoscopy. Denies chest pain, shortness of breath or recent hospitalizations. Denies problems with sedation in the past/ PAST MEDICAL HISTORY PAST MEDICAL HISTORY Diagnosis Date Diabetes mellitus (HCC) Hyperlipemia Pneumonia, viral PAST SURGICAL HISTORY PAST SURGICAL HISTORY Procedure Laterality Date PAST SURGICAL HISTORY OF mole removal on face TONSILLECTOMY & ADENOIDECTOMY <AGE 13 CURRENT MEDICATIONS Current Outpatient Medications Medication Sig ergocalciferol, vitamin D2, (VITAMIN D2 ORAL) Take by mouth. Once a month No current facility-administered medications for this visit. ALLERGIES: Patient has no known allergies. PERSONAL HISTORY: SOCIAL HISTORY Social History Tobacco Use Smoking status: Never Smokeless tobacco: Never Vaping Use Vaping Use: Never used Substance Use Topics Alcohol use: Never Drug use: Never FAMILY HISTORY: FAMILY HISTORY FAMILY HISTORY Problem Relation Age of Onset Heart Attack Mother Osteoporosis Mother Dementia Father other (myocarditis) Father other (a fib) Father Heart Attack Father other (atrial fib) Father Diabetes Father Kidney Disease Sister Thyroid Sister REVIEW OF SYMPTOMS: The review of systems data was entered by the nurse and reviewed by sc Nursing Notes: Shira Lima LPN 12/27/2022 1:48 PM Signed REVIEW OF SYSTEMS: General: The patient denies fatigue, denies weight loss, notes weight gain, denies feeling hot, and denies feelings of cold. Eyes: The patient denies glaucoma, denies eye injury/surgery, wears glasses or contacts. Ear/Nose/Throat: The patient denies allergies, denies hayfever, denies ear infections, and denies bloody noses. Cardiovascular: The patient notes chest pain, denies heart disease, denies high blood pressure,denies cardiac stent, denies prior heart attack, denies irregular heart beat, denies high cholesterol, denies poor circulation, denies heart failure, other cardiac issues, denies claudication, notes cold feet, denies peripheral arterial stent. Respiratory: The patient denies tuberculosis, notes pneumonia, denies frequent cough, denies pulmonary embolism, denies shortness of breath, and denies coughing up blood. Gastrointestinal: The patient denies difficulty swallowing, denies acid reflux, denies ulcers, denies vomiting, denies jaundice/hepatitis, denies gallbladder problems, denies black or tarry stools, notes hemorrhoids, denies bleeding from rectum, denies diverticulitis, denies constipation, denies diarrhea, denies loss of stool control, and denies hernias. Kidney/Bladder: The patient denies kidney stones, denies urine infections, and denies bloody urine. Skin: The patient notes a history of skin cancer, denies bleeding/changing moles, and denies a history of skin rash. Neurologic: The patient denies a history of epilepsy/convulsions, notes headaches, denies head/spinal injuries, and denies stroke/TIA. Psychiatric: The patient denies psychiatric medications, denies depression, and denies voices, denies substance abuse. Endocrine: The patient denies thyroid disorders, notes diabetes, and denies hormonal problems. Hematologic: The patient denies a history of bruising, denies bleeding, and denies anemia, denies blood clots. Infections: The patient denies a history of measles and mumps, denies rheumatic fever, and denies sexually transmitted diseases. Musculoskeletal: The patient notes back pain/injury, denies back problems, denies sciatica, notes knee/foot trouble, denies arthritis, or denies gout. When was patient's last Mammogram screening? N/A Last Colonoscopy: none Shira Lima LPN I have confirmed and edited as necessary, the PFSH and ROS obtained by others. Becky Frazier PA-C PHYSICAL EXAMINATION: General: The patient is 57 year old male, well nourished, well hydrated in no acute distress. The patient is oriented to time, place, and person. VITALS: Blood pressure 118/80, pulse 85, temperature (!) 35.9 C (96.7 F), height 188 cm (6' 2 ), weight 84.4 kg (186 lb), SpO2 97 %. Body mass index is 23.88 kg/m . HEENT: Normal cephalic, ataumatic, pupils are equally round, sclera are anicteric, mucous membranes are moist, oropharynx is clear. Neck has no masses, asymmetry or lymphadenopathy. Respiratory: Clear to auscultation and percussion. Normal respiratory excursion and pattern. Cardiac: Examination is regular rate and rhythm. Normal S1/S2 Abdominal exam: Soft, nontender, with no palpable masses. No hepatosplenomegaly. No palpable hernias. Extremities: no clubbing, cyanosis or edema. No adenopathy. LABORATORY VALUES: As Noted RADIOLOGIC STUDIES: As Noted Assessment IMPRESSION: encounter for colonoscopy. Sensation of rectal fullness after exercise-suspect likely hemorrhoidal disease PLAN: I have reviewed my findings with the surgeon. Will plan for lower endoscopy. We discussed the risks and benefits of the planned endoscopy. I have informed the patient that complications can occur including failure to complete the endoscopy and perforation. The patient had the opportunity to ask questions concerning the planned endoscopy. My staff has also explained the procedure to the patient in understandable terms and has given the patient printed material concerning the procedure. The patient freely consents to surgery. The patient was offered a surgery/procedure at a [facility] facility. I have counseled the patient regarding the risk of exposure to and/or potential harm posed by the COVID-19 virus with having a surgery/procedure at this time versus the risk of delaying the surgery/procedure. It is not possible to know either the risk of delaying the surgery or procedure or chance of getting an infection with perfect accuracy, but a joint decision was made between the patient and myself to proceed at this time with endoscopy. Patient notes he [facility] I have explained to the patient the difference between IV conscious sedation and MAC anesthesia - and I have offered either, according to the patient's wishes. I have explained that with IV conscious sedation there is no anesthesia provider available and therefore there is a limitation of the amount of IV medications that can be given and that the patient may wake up in the middle of the procedure and/or experience pain/discomfort during the procedure. Further discussion was done and the patient was given the opportunity to ask questions and all questions were answered. The patient chooses IV conscious sedation. Requesting Dr. Clement for procedure If noted to have internal hemorrhoids on colonoscopy, consider follow-up with surgeon for possible hemorrhoidal banding Diagnoses: (R19.8) Rectal fullness (primary encounter diagnosis) (Z12.11) Encounter for screening for malignant neoplasm of colon Consultation requested by Dr. Lesli Fan for an opinion regarding rectal fullness and need for colonoscopy. My final recommendations will be communicated back to the requesting physician by way of shared Medical record or letter to requesting physician via US mail. Becky Frazier PA-C documented in this encounter [facility] History of Present illness Narrative 12-27-2022 Becky Frazier PA-C - 12/27/2022 1:58 PM EST Note Date & Type Note Facility 12-27-2022 History of Presen t illness Narrative HISTORY AND PHYSICAL Jessika Chapa 1965 REFERRING PHYSICIAN: Lesli Fan CNP CHIEF COMPLAINT: Consult (Colonoscopy) HPI: The patient is a 57 year old male referred for endoscopy. Jessika notes no colon complaints. Patient denies any change in bowel habits, weight changes, blood in stools, black tarry stools or abdominal pain. He does note a sensation of rectal fullness x years which is worse after cycling. Occasionally notes sensation of some tissue prolapsing. Denies any bleeding or pain. had examined by a PCP at one point and was told nothing worrisome on exam. Denies family history of colon cancer in a first-degree relative. Does note a cousin who had colon resection and colostomy performed, but unsure of diagnosis. The patient notes no upper GI complaints. Jessika has not undergone prior endoscopy. Denies chest pain, shortness of breath or recent hospitalizations. Denies problems with sedation in the past/ PAST MEDICAL HISTORY Diagnosis Date Diabetes mellitus (HCC) Hyperlipemia Pneumonia, viral PAST SURGICAL HISTORY Procedure Laterality Date PAST SURGICAL HISTORY OF mole removal on face TONSILLECTOMY & ADENOIDECTOMY <AGE 13 Current Outpatient Medications Medication Sig ergocalciferol, vitamin D2, (VITAMIN D2 ORAL) Take by mouth. Once a month No current facility-administered medications for this visit. ALLERGIES: Patient has no known allergies. PERSONAL HISTORY: Social History Tobacco Use Smoking status: Never Smokeless tobacco: Never Vaping Use Vaping Use: Never used Substance Use Topics Alcohol use: Never Drug use: Never FAMILY HISTORY: FAMILY HISTORY Problem Relation Age of Onset Heart Attack Mother Osteoporosis Mother Dementia Father other (myocarditis) Father other (a fib) Father Heart Attack Father other (atrial fib) Father Diabetes Father Kidney Disease Sister Thyroid Sister REVIEW OF SYMPTOMS: The review of systems data was entered by the nurse and reviewed by sc Nursing Notes: Shira Lima LPN 12/27/2022 1:48 PM Signed REVIEW OF SYSTEMS: General: The patient denies fatigue, denies weight loss, notes weight gain, denies feeling hot, and denies feelings of cold. Eyes: The patient denies glaucoma, denies eye injury/surgery, wears glasses or contacts. Ear/Nose/Throat: The patient denies allergies, denies hayfever, denies ear infections, and denies bloody noses. Cardiovascular: The patient notes chest pain, denies heart disease, denies high blood pressure,denies cardiac stent, denies prior heart attack, denies irregular heart beat, denies high cholesterol, denies poor circulation, denies heart failure, other cardiac issues, denies claudication, notes cold feet, denies peripheral arterial stent. Respiratory: The patient denies tuberculosis, notes pneumonia, denies frequent cough, denies pulmonary embolism, denies shortness of breath, and denies coughing up blood. Gastrointestinal: The patient denies difficulty swallowing, denies acid reflux, denies ulcers, denies vomiting, denies jaundice/hepatitis, denies gallbladder problems, denies black or tarry stools, notes hemorrhoids, denies bleeding from rectum, denies diverticulitis, denies constipation, denies diarrhea, denies loss of stool control, and denies hernias. Kidney/Bladder: The patient denies kidney stones, denies urine infections, and denies bloody urine. Skin: The patient notes a history of skin cancer, denies bleeding/changing moles, and denies a history of skin rash. Neurologic: The patient denies a history of epilepsy/convulsions, notes headaches, denies head/spinal injuries, and denies stroke/TIA. Psychiatric: The patient denies psychiatric medications, denies depression, and denies voices, denies substance abuse. Endocrine: The patient denies thyroid disorders, notes diabetes, and denies hormonal problems. Hematologic: The patient denies a history of bruising, denies bleeding, and denies anemia, denies blood clots. Infections: The patient denies a history of measles and mumps, denies rheumatic fever, and denies sexually transmitted diseases. Musculoskeletal: The patient notes back pain/injury, denies back problems, denies sciatica, notes knee/foot trouble, denies arthritis, or denies gout. When was patient's last Mammogram screening? N/A Last Colonoscopy: none Shira Lima LPN I have confirmed and edited as necessary, the PFSH and ROS obtained by others. Becky Frazier PA-C PHYSICAL EXAMINATION: General: The patient is 57 year old male, well nourished, well hydrated in no acute distress. The patient is oriented to time, place, and person. VITALS: Blood pressure 118/80, pulse 85, temperature (!) 35.9 C (96.7 F), height 188 cm (6' 2 ), weight 84.4 kg (186 lb), SpO2 97 %. Body mass index is 23.88 kg/m . HEENT: Normal cephalic, ataumatic, pupils are equally round, sclera are anicteric, mucous membranes are moist, oropharynx is clear. Neck has no masses, asymmetry or lymphadenopathy. Respiratory: Clear to auscultation and percussion. Normal respiratory excursion and pattern. Cardiac: Examination is regular rate and rhythm. Normal S1/S2 Abdominal exam: Soft, nontender, with no palpable masses. No hepatosplenomegaly. No palpable hernias. Extremities: no clubbing, cyanosis or edema. No adenopathy. LABORATORY VALUES: As Noted RADIOLOGIC STUDIES: As Noted Assessment IMPRESSION: encounter for colonoscopy. Sensation of rectal fullness after exercise-suspect likely hemorrhoidal disease PLAN: I have reviewed my findings with the surgeon. Will plan for lower endoscopy. We discussed the risks and benefits of the planned endoscopy. I have informed the patient that complications can occur including failure to complete the endoscopy and perforation. The patient had the opportunity to ask questions concerning the planned endoscopy. My staff has also explained the procedure to the patient in understandable terms and has given the patient printed material concerning the procedure. The patient freely consents to surgery. The patient was offered a surgery/procedure at a [facility] facility. I have counseled the patient regarding the risk of exposure to and/or potential harm posed by the COVID-19 virus with having a surgery/procedure at this time versus the risk of delaying the surgery/procedure. It is not possible to know either the risk of delaying the surgery or procedure or chance of getting an infection with perfect accuracy, but a joint decision was made between the patient and myself to proceed at this time with endoscopy. Patient notes [facility] I have explained to the patient the difference between IV conscious sedation and MAC anesthesia - and I have offered either, according to the patient's wishes. I have explained that with IV conscious sedation there is no anesthesia provider available and therefore there is a limitation of the amount of IV medications that can be given and that the patient may wake up in the middle of the procedure and/or experience pain/discomfort during the procedure. Further discussion was done and the patient was given the opportunity to ask questions and all questions were answered. The patient chooses IV conscious sedation. Requesting Dr. Clement for procedure If noted to have internal hemorrhoids on colonoscopy, consider follow-up with surgeon for possible hemorrhoidal banding Diagnoses: (R19.8) Rectal fullness (primary encounter diagnosis) (Z12.11) Encounter for screening for malignant neoplasm of colon Consultation requested by Dr. Lesli Fan for an opinion regarding rectal fullness and need for colonoscopy. My final recommendations will be communicated back to the requesting physician by way of shared Medical record or letter to requesting physician via [place] mail. Becky Frazier PA-C documented in this encounter [facility] Nurse Note 12-27-2022 Shira Lima LPN - 12/27/2022 1:43 PM EST Note Date & Type Note Facility 12-27-2022 Nurse Note REVIEW OF SYSTEMS: General: The patient denies fatigue, denies weight loss, notes weight gain, denies feeling hot, and denies feelings of cold. Eyes: The patient denies glaucoma, denies eye injury/surgery, wears glasses or contacts. Ear/Nose/Throat: The patient denies allergies, denies hayfever, denies ear infections, and denies bloody noses. Cardiovascular: The patient notes chest pain, denies heart disease, denies high blood pressure,denies cardiac stent, denies prior heart attack, denies irregular heart beat, denies high cholesterol, denies poor circulation, denies heart failure, other cardiac issues, denies claudication, notes cold feet, denies peripheral arterial stent. Respiratory: The patient denies tuberculosis, notes pneumonia, denies frequent cough, denies pulmonary embolism, denies shortness of breath, and denies coughing up blood. Gastrointestinal: The patient denies difficulty swallowing, denies acid reflux, denies ulcers, denies vomiting, denies jaundice/hepatitis, denies gallbladder problems, denies black or tarry stools, notes hemorrhoids, denies bleeding from rectum, denies diverticulitis, denies constipation, denies diarrhea, denies loss of stool control, and denies hernias. Kidney/Bladder: The patient denies kidney stones, denies urine infections, and denies bloody urine. Skin: The patient notes a history of skin cancer, denies bleeding/changing moles, and denies a history of skin rash. Neurologic: The patient denies a history of epilepsy/convulsions, notes headaches, denies head/spinal injuries, and denies stroke/TIA. Psychiatric: The patient denies psychiatric medications, denies depression, and denies voices, denies substance abuse. Endocrine: The patient denies thyroid disorders, notes diabetes, and denies hormonal problems. Hematologic: The patient denies a history of bruising, denies bleeding, and denies anemia, denies blood clots. Infections: The patient denies a history of measles and mumps, denies rheumatic fever, and denies sexually transmitted diseases. Musculoskeletal: The patient notes back pain/injury, denies back problems, denies sciatica, notes knee/foot trouble, denies arthritis, or denies gout. When was patient's last Mammogram screening? N/A Last Colonoscopy: none Shira Lima LPN documented in this encounter [facility] Evaluation note Note Date & Type Note Facility Evaluation note Diagnosis Rectal fullness- Primary Other symptoms involving digestive system Encounter for screening for malignant neoplasm of colon Special screening for malignant neoplasms, colon documented in this encounter [facility] Evaluation note Note Date & Type Note Facility Evaluation note Diagnosis Screening for colon cancer- Primary Special screening for malignant neoplasms, colon Rectal fullness Other symptoms involving digestive system documented in this encounter [facility] Reason for referral (narrative) Outpatient Procedure (Routine) - Closed Note Date & Type Note Facility Reason for referral (narrati ve) Specialty Diagnoses / Procedures Referred By Elizabeth t Referred To Contact [facility] Diagnoses Rectal fullness Procedures COLONOSCOPY DIAGNOSTIC COLONOSCOPY FLX DX W/COLLJ SPEC WHEN PFRMD Becky Frazier PA-C [address] [place] [address] [facility] [address] [place] [address] Referral ID Status Reason Start Date Expiration Date V isits Requested Visits Authorized [id number] Closed Auto-Generate d Referral 12/27/2022 12/27/2023 1 1 [facility] Reason for visit Narrative Outpatient Procedure (Routine) - Closed Note Date & Type Note Facility Reason for visit Narrative Specialty Diagnoses / Procedures Referred By Elizabeth t Referred To Contact [facility] Diagnoses Rectal fullness Procedures COLONOSCOPY DIAGNOSTIC COLONOSCOPY FLX DX W/COLLJ SPEC WHEN PFRMD Becky Frazier PA-C [address] [facility] [place] [address] [facility] [address] [place] [address] Referral ID Status Reason Start Date Expiration Date V isits Requested Visits Authorized [id number] Closed Auto-Generate d Referral 12/27/2022 12/27/2023 1 1 [facility] Medications Administered Section Inactive Administered Medications - up to 3 most recent administrations Medication Order MAR Action Action Date Dose Rate Site diphenhydrAMINE 12.5-50 mg injection (BENADRYL) 12.5-50 mg, INTRAVENOUS, DIRECTED, Starting on Mon01/20/23 at 1200, Until Mon01/20/23 at 1559, DOSING DIRECTED BY PHYSICIAN FOR PROCEDURAL SEDATION ONLY, Intraprocedure Given 01/20/2023 11:58 AM EST 50 mg fentaNYL 50 mcg/mL 25-100 mcg injection (SUBLIMAZE) 25-100 mcg, INTRAVENOUS, DIRECTED, Starting on Mon01/20/23 at 1200, Until Mon01/20/23 at 1559, DOSING DIRECTED BY PHYSICIAN FOR PROCEDURAL SEDATION ONLY, Intraprocedure Given 01/20/2023 11:55 AM EST 50 mcg lactated ringers iv infusion 75 mL/hr, INTRAVENOUS, CONTINUOUS, Starting on Mon01/20/23 at 1200, Until Mon01/20/23 at 1236, Preprocedure New Bag/Syringe/Bottle 01/20/2023 11:50 AM EST 75 mL/hr 75 mL/hr midazolam 1-5 mg injection (VERSED) 1-5 mg, INTRAVENOUS, DIRECTED, Starting on Mon01/20/23 at 1200, Until Mon01/20/23 at 1559, DOSING DIRECTED BY PHYSICIAN FOR PROCEDURAL SEDATION ONLY, Intraprocedure Given 01/20/2023 12:03 PM EST 2 mg Given 01/20/2023 12:00 PM EST 2 mg Given 01/20/2023 11:55 AM EST 3 mg Summary Purpose Family History No Family History Records Found Advance Directives No Advanced Directives Records Found Additional Source Comments Source Comments (unrecognize d section and content) In the event this informatio n is protected by the Federal Confidentiality of Alcohol and Drug Abuse Patient Records regulations: The Federal rules restrict any use of the information to criminally investigate or prosecute any alcohol or drug abuse patient[facility] event this information is protected by the Federal Confidentiality of Alcohol and Drug Abuse Patient Records regulations: The Federal rules restrict any use of the information to criminally investigate or prosecute any alcohol or drug abuse patient.[facility] Reason for Visit (unrecogniz ed section and content) Reason Comments Consult Colonoscopy Specialty Diagnoses / Procedures Referred By Contac t Referred To Contact General Surgery / GENERAL SURGERY Diagnoses Other fecal abnormalities RECTAL FULLNESS - NEVER HAD COLON BEFORE - [facility] IN SCANNED DOC Procedures OFFICE/OUTPATIENT NEW HIGH MDM 60-74 MINUTES NEW DDI PATIENT Lesli Fan [address] [place] [address] Becky Frazier PA-C [address] [place], [place] [address] [address] Referral ID Status Reason Start Date Expiration Date Visits Re quested Visits Authorized [id number] Closed 12/01/2022 05/30/2023 1 1 Care Teams (unrecognized sec tion and content) Car Custom[employer] Relationship Specialty Start Date End Date Pcp, No PCP - General 06/11/22 12/27/22 (unrecognized sect ion and content) No Status Records Found INFORMATION SOURCE (unrecogn ized section and content) DATE CREATED AUTHOR 05/16/2024 [facility] FOR RECORDS PERTAINING TO PATIENTS WHO ARE OR HAVE BEEN ENROLLED IN A CHEMICAL DEPENDENCY/SUBSTANCEABUSE PROGRAM, SOME INFORMATION MAY BE OMITTED. This clinical summary was aggregated from multiple sources. Caution should be exercised in using it in the provision of clinical care. This summary normalizes information from multiple sources, and as a consequence, information in this document may materially change the coding, format and clinical context of patient data. In addition, data may be omitted in some cases. CLINICAL DECISIONS SHOULD BE BASED ON THE PRIMARY CLINICAL RECORDS. [facility] [employer] [facility]. provides no warranty or guarantee of the accuracy or completeness of information in this document.
== END | disposition home or self-care (01) ==
PROVIDERS: Referring Provider Chiropractor; Visit Provider Chiropractor
DX: J98.3 Compensatory emphysema (principal)
CPT/HCPCS: 71046; 94060; 94726; 94729